=== PATIENT | female | born 1955 | race Caucasian/White ===

== ENCOUNTER 2019-10-10 19:31 | Emergency (ER) | payer OTHER, BC ==
[~2019-10-10] VITALS: Ht 170.2 cm; Wt 135.6 kg
[2019-10-10 20:38] LABS: BASOPHIL % 0.9 % (0-2); PLATELET COUNT 179 x10^3mcL (130-400); RED CELL DISTRIBUTION WIDTH 13.5 % (11.5-14.5)
[2019-10-10 20:50] LABS: CALCIUM 9.3 mg/dL (8.5-10.1); CARBON DIOXIDE 27.7 mmol/L (21-32); CHLORIDE SERUM 101 mmol/L (98-107); CREATININE SERUM 0.9 mg/dL (0.6-1.0); GFR1 > 60 mL/min; GLUCOSE SERUM 178 mg/dL (74-106); POTASSIUM SERUM 4.1 mmol/L (3.5-5.1); SODIUM SERUM 139 mmol/L (136-145)
[2019-10-10 20:54] LABS: ALBUMIN 3.4 g/dL (3.4-5.0); ALKALINE PHOSPHATASE 87 U/L (46-116); ALT/SGPT 70 U/L (14-59); AST/SGOT 39 U/L (15-37); BILIRUBIN TOTAL 0.6 mg/dL (0.20-1.00); TOTAL PROTEIN, SERUM 7.4 g/dL (6.4-8.2)
[2019-10-10] MEDS ORDERED: LANTI (23:10)
[2019-10-10] MEDS ORDERED: HUMALOG100 U/ML (23:12)
[2019-10-10 23:14] VITALS: BP 169/75
== END 2019-10-11 00:21 | disposition left against medical advice (07) ==
LOC: ED 19:31 → MU 22:44 → ED 10-11 00:21
PROVIDERS: Emergency Medicine
DX: L03.211 Cellulitis of face (principal); B02.9 Zoster without complications; E11.65 Type 2 diabetes mellitus with hyperglycemia; E86.0 Dehydration; Z88.2 Allergy status to sulfonamides
CPT/HCPCS: G0378; J0133; J1956; J2270; J2405; J7030